=== PATIENT | male | born 1975 | race Caucasian/White ===

== ENCOUNTER 2017-07-14 20:31 | Emergency (ER) | payer SELFPAY ==
[~2017-07-14] VITALS: Ht 167.6 cm; Wt 64.9 kg
[2017-07-14 21:02] VITALS: Ht 167.6 cm; Wt 64.9 kg
[2017-07-14 23:06] VITALS: BP 124/87
== END 2017-07-14 23:06 | disposition home or self-care (01) ==
LOC: ED 20:31
DX: S61.211A Laceration without foreign body of left index finger without damage to nail, initial encounter (principal); W45.8XXA Other foreign body or object entering through skin, initial encounter; Y93.89 Activity, other specified; Y92.098 Other place in other non-institutional residence as the place of occurrence of the external cause; Y99.8 Other external cause status
CPT/HCPCS: 90715; J2001